=== PATIENT | male | born 1945 | race Caucasian/White ===

== ENCOUNTER 2019-12-04 10:58 | Observation (INO) ==
[2019-12-04] MEDS ORDERED: SODIUM CHLORIDE 0.9% 1,000 ML IV STA (11:22)
[2019-12-04] MEDS ORDERED: ONDANSETRON 4 MG/2 ML VIAL IV STA (11:22)
[2019-12-04] MEDS ORDERED: HYDROmorphone 2 MG/1 ML VIAL ONE (12:07)
[2019-12-04 12:11] LABS: Basophils % 0.3 % (0.0-0.8); Eosinophils % 0.1 % (0.00-10.9); Hematocrit 39.8 VOL% (42.0-52.0); Immature Granulocytes % 0.6 %; Immature Granulocytes Absolute 0.09 #; Lymphocytes # 2.5 10*3/uL (1.4-4.0); Lymphocytes % 15.9 % (21.2-54.2); Mean Corpuscular HGB Conc 32.7 GM/DL (32-36); Mean Corpuscular Volume 92.6 FL (87-102); Mean Platelet Volume 10.1 FL (9.6-12.0); Monocytes % 7.9 % (1.7-12.7); Neutrophils % 75.2 % (38.7-73.9); Platelet Count 330 T/CUMM (130-400); Red Cell Distribution Width 13.9 % (9.3-17.3); White Blood Count 15.5 T/CUMM (4-12)
[2019-12-04] MEDS ORDERED: HYDROmorphone 2 MG/1 ML VIAL IV STA (12:16)
[2019-12-04] MEDS ORDERED: ceFAZolin 1,000 MG in SYRINGE 1 EACH IV ONE (12:20)
[2019-12-04 12:23] LABS: PT Patient Result 10.7 SECS (9.8-11.9); Partial Thromboplastin Time 25.3 SECS (23.9-33.8)
[2019-12-04 12:25] LABS: Albumin 3.4 G/DL (3.4-5.0); Bilirubin,Total 0.5 MG/DL (0.2-1.0); Calcium 9.1 MG/DL (8.5-10.1); Osmolality,Calculated 286.3 MOS/KG (273-304); Total Protein 8.4 G/DL (6.4-8.3)
[2019-12-04] MEDS ORDERED: SODIUM CHLORIDE 0.9% 1,000 ML IV PRN (13:51)
[2019-12-04] MEDS ORDERED: LACTATED RINGERS 1,000 ML IV SCH (14:00)
[2019-12-04] MEDS ORDERED: ceFAZolin 1,000 MG VIAL ONE (14:15)
[2019-12-04] MEDS ORDERED: TISSUE ADHESIVE 1 EACH APPLICATOR TOP ONE (15:27)
[2019-12-04] MEDS ORDERED: ACETAMINOPHEN 325 MG TABLET PO PRN (15:45)
[2019-12-04] MEDS ORDERED: ONDANSETRON 4 MG/2 ML VIAL IV PRN ×2 (15:45→15:47)
[2019-12-04] MEDS ORDERED: HYDROmorphone 2 MG/1 ML VIAL IV PRN (15:47)
[2019-12-04] MEDS ORDERED: SEVOFLURANE 1 UNIT/15 MINUTE INH ONE (15:50)
[2019-12-04] MEDS ORDERED: LIDOCAINE 2% 5 ML VIAL ONE (15:50)
[2019-12-04] MEDS ORDERED: fentaNYL 100 MCG/2 ML VIAL ONE (15:50)
[2019-12-04] MEDS ORDERED: ONDANSETRON 4 MG/2 ML VIAL ONE (15:50)
[2019-12-04] MEDS ORDERED: propofoL 200 MG/20 ML VIAL IV ONE (15:50)
[2019-12-04] MEDS ORDERED: GLYCOPYRROLATE 0.4 MG/2 ML VIAL ONE (15:51)
[2019-12-04] MEDS ORDERED: PHENYLEPHRINE 1 MG/10 ML SYRINGE IV ONE (15:51)
[2019-12-04] MEDS ORDERED: ROCURONIUM 100 MG/10 ML VIAL IV ONE (15:51)
[2019-12-04] MEDS ORDERED: NEOSTIGMINE 10 MG/10 ML VIAL ONE (15:51)
[2019-12-04] MEDS ORDERED: ETOMIDATE 40 MG/20 ML VIAL IV ONE (15:51)
[2019-12-04] MEDS ORDERED: HYDROCORTISONE 100 MG VIAL ONE (15:51)
[2019-12-04 20:36] LABS: Apearance,Urine CLEAR (Clear); Bacteria,Urine Occasional /HPF (Few); Bilirubin,Urine Negative (Negative); Blood, Urine Moderate mg/dL (Negative); Glucose,Urine (UA) Negative (Negative); Ketones,Urine Negative (Negative); Mucus,Urine Occasional /LPF (Occasional); Nitrite,Urine Negative (Negative); Protein,Urine Negative; RBC,Urine 3 /HPF (0-4); Squamous Epithelial Cell,Urine Occasional /HPF (0-10); Urine Color Yellow (Yellow); Urine Specific Gravity > 1.060 (1.001-1.035); Urine Urobilinogen < 2.0 EU/DL (0.2-1.0); WBC,Urine 1 /HPF (0-6)
[2019-12-04] MEDS: HYDROmorphone 2 MG/1 ML VIAL IV PRN (20:41)
[2019-12-05] MEDS: HYDROmorphone 2 MG/1 ML VIAL IV PRN (02:47)
[2019-12-05 06:12] LABS: Basophils % 0.3 % (0.0-0.8); Eosinophils # 0.1 10*3/uL (0.0-0.87); Eosinophils % 0.4 % (0.00-10.9); Hematocrit 34.2 VOL% (42.0-52.0); Hemoglobin 11.1 GM/DL (14.0-18.0); Immature Granulocytes % 0.3 %; Immature Granulocytes Absolute 0.04 #; Lymphocytes # 3.1 10*3/uL (1.4-4.0); Lymphocytes % 25.3 % (21.2-54.2); Mean Corpuscular HGB Conc 32.5 GM/DL (32-36); Mean Corpuscular Volume 94.2 FL (87-102); Mean Platelet Volume 10.2 FL (9.6-12.0); Monocytes % 11.2 % (1.7-12.7); Neutrophils % 62.5 % (38.7-73.9); Platelet Count 263 T/CUMM (130-400); Red Blood Count 3.63 MC/CUMM (3.8-5.5); Red Cell Distribution Width 13.9 % (9.3-17.3); White Blood Count 12.2 T/CUMM (4-12)
[2019-12-05 06:48] LABS: Osmolality,Calculated 278.7 MOS/KG (273-304)
[2019-12-05] MEDS: LACTATED RINGERS 1,000 ML IV SCH (08:25)
[2019-12-05] MEDS ORDERED: BISACODYL 5 MG TABLET PO ONE (09:28)
[2019-12-05] MEDS ORDERED: SIMVASTATIN 40 MG TABLET PO SCH (21:00)
[2019-12-05] MEDS ORDERED: PANTOPRAZOLE 40 MG TABLET PO ONE (23:24)
[2019-12-06] MEDS: LACTATED RINGERS 1,000 ML IV SCH ×2 (05:08→12:55)
[2019-12-06 07:09] LABS: Basophils % 0.2 % (0.0-0.8); Eosinophils # 0.1 10*3/uL (0.0-0.87); Hematocrit 33.5 VOL% (42.0-52.0); Immature Granulocytes % 0.5 %; Immature Granulocytes Absolute 0.05 #; Lymphocytes # 2.5 10*3/uL (1.4-4.0); Lymphocytes % 25.3 % (21.2-54.2); Mean Corpuscular HGB Conc 32.8 GM/DL (32-36); Mean Corpuscular Volume 93.6 FL (87-102); Mean Platelet Volume 9.4 FL (9.6-12.0); Monocytes % 11.4 % (1.7-12.7); Neutrophils % 61.6 % (38.7-73.9); Platelet Count 228 T/CUMM (130-400); Red Blood Count 3.58 MC/CUMM (3.8-5.5); Red Cell Distribution Width 13.5 % (9.3-17.3); White Blood Count 9.9 T/CUMM (4-12)
[2019-12-06 07:19] LABS: Calcium 8.5 MG/DL (8.5-10.1); Osmolality,Calculated 272.1 MOS/KG (273-304)
[2019-12-06] MEDS ORDERED: DIAZEPAM 5 MG TABLET PO ONE (08:23)
[2019-12-06 12:06] VITALS: BP 118/56
== END 2019-12-06 15:03 | disposition home or self-care (01) ==
LOC: EDUNIT# → EDBD → N.ED 10:58 → N.SDSINP 13:18 → INTOOBSV 13:18 → N.SDSINP 13:22 → N.SDS 13:22 → N.SDSINP 13:24 → EDSDCBED 16:45 → N.3E 16:45 → N.SDSINP 16:45 → N.SDS 12-06 15:03 → UNDODEPSDC 12-09 10:26
PROVIDERS: ADMIT Student in an Organized Health Care Education/Training Program; ATTEND Student in an Organized Health Care Education/Training Program

== ENCOUNTER 2019-12-07 07:59 | Inpatient (IN) ==
[2019-12-07] MEDS ORDERED: SODIUM CHLORIDE 0.9% 1,000 ML IV STA (08:40)
[2019-12-07] MEDS ORDERED: ONDANSETRON 4 MG/2 ML VIAL IV STA (08:40)
[2019-12-07 09:05] LABS: Basophils % 0.1 % (0.0-0.8); Eosinophils % 0.3 % (0.00-10.9); Hematocrit 33.8 VOL% (42.0-52.0); Hemoglobin 11.1 GM/DL (14.0-18.0); Immature Granulocytes % 0.4 %; Immature Granulocytes Absolute 0.05 #; Lymphocytes # 1.4 10*3/uL (1.4-4.0); Lymphocytes % 12.3 % (21.2-54.2); Mean Corpuscular HGB Conc 32.8 GM/DL (32-36); Mean Corpuscular Volume 93.6 FL (87-102); Mean Platelet Volume 9.6 FL (9.6-12.0); Monocytes % 10.2 % (1.7-12.7); Neutrophils % 76.7 % (38.7-73.9); Platelet Count 259 T/CUMM (130-400); Red Blood Count 3.61 MC/CUMM (3.8-5.5); Red Cell Distribution Width 13.2 % (9.3-17.3); White Blood Count 11.6 T/CUMM (4-12)
[2019-12-07 09:33] LABS: Albumin 2.5 G/DL (3.4-5.0); Bilirubin,Direct 0.14 MG/DL (0.0-0.20); Bilirubin,Indirect 0.5 MG/DL (0.0-1.0); Bilirubin,Total 0.6 MG/DL (0.2-1.0); Calcium 8.1 MG/DL (8.5-10.1); Osmolality,Calculated 275.8 MOS/KG (273-304); Total Protein 7.2 G/DL (6.4-8.3)
[2019-12-07] MEDS ORDERED: BISACODYL 10 MG SUPP RECTAL PRN (13:27)
[2019-12-07] MEDS: ONDANSETRON 4 MG/2 ML VIAL IV PRN (13:43)
[2019-12-07] MEDS: DEXTROSE 5% NACL 0.45% 1,000 ML IV SCH ×2 (13:46→23:39)
[2019-12-07] MEDS: HYDROmorphone 2 MG/1 ML VIAL IV PRN (20:26)
[2019-12-07] MEDS: CLOPIDOGREL 75 MG TABLET PO SCH (20:26)
[2019-12-07] MEDS: ASPIRIN EC 81 MG TABLET PO SCH (20:26)
[2019-12-08] MEDS: HYDROmorphone 2 MG/1 ML VIAL IV PRN ×4 (00:21→18:50)
[2019-12-08] MEDS: ENOXAPARIN 40 MG/0.4 ML SYRINGE SUBCUT SCH (04:15)
[2019-12-08] MEDS: DEXTROSE 5% NACL 0.45% 1,000 ML IV SCH ×3 (04:17→18:44)
[2019-12-08 05:44] LABS: Osmolality,Calculated 275.8 MOS/KG (273-304)
[2019-12-08 08:23] LABS: Apearance,Urine CLEAR (Clear); Bacteria,Urine Occasional /HPF (Few); Bilirubin,Urine Negative (Negative); Blood, Urine Negative (Negative); Glucose,Urine (UA) Negative (Negative); Ketones,Urine Negative (Negative); Mucus,Urine Few /LPF (Occasional); Nitrite,Urine Negative (Negative); Protein,Urine 30 MG/DL; RBC,Urine 1 /HPF (0-4); Squamous Epithelial Cell,Urine Occasional /HPF (0-10); Urine Color Yellow (Yellow); Urine Specific Gravity 1.025 (1.001-1.035); Urine Urobilinogen < 2.0 EU/DL (0.2-1.0); WBC,Urine 1 /HPF (0-6)
[2019-12-08] MEDS: PANTOPRAZOLE 40 MG VIAL IV SCH (09:14)
[2019-12-08] MEDS: POTASSIUM CHLORIDE RIDER 10 MEQ in PREMIX 1 EACH IV PRN ×8 (11:05→22:20)
[2019-12-08] MEDS: ASPIRIN EC 81 MG TABLET PO SCH (21:25)
[2019-12-08] MEDS: CLOPIDOGREL 75 MG TABLET PO SCH (21:25)
[2019-12-09] MEDS: HYDROmorphone 2 MG/1 ML VIAL IV PRN ×4 (00:06→20:48)
[2019-12-09] MEDS: ENOXAPARIN 40 MG/0.4 ML SYRINGE SUBCUT SCH (03:27)
[2019-12-09] MEDS: POTASSIUM CHLORIDE RIDER 10 MEQ in PREMIX 1 EACH IV PRN ×2 (03:45→04:56)
[2019-12-09] MEDS: DEXTROSE 5% NACL 0.45% 1,000 ML IV SCH ×3 (05:29→19:19)
[2019-12-09 07:30] LABS: Basophils % 0.2 % (0.0-0.8); Eosinophils # 0.2 10*3/uL (0.0-0.87); Eosinophils % 1.5 % (0.00-10.9); Hematocrit 30.8 VOL% (42.0-52.0); Hemoglobin 10.2 GM/DL (14.0-18.0); Immature Granulocytes % 0.6 %; Immature Granulocytes Absolute 0.08 #; Lymphocytes # 2.3 10*3/uL (1.4-4.0); Lymphocytes % 18.4 % (21.2-54.2); Mean Corpuscular HGB Conc 33.1 GM/DL (32-36); Mean Corpuscular Volume 93.1 FL (87-102); Mean Platelet Volume 9.2 FL (9.6-12.0); Monocytes % 9.8 % (1.7-12.7); Neutrophils % 69.5 % (38.7-73.9); Platelet Count 289 T/CUMM (130-400); Red Blood Count 3.31 MC/CUMM (3.8-5.5); Red Cell Distribution Width 13.3 % (9.3-17.3); White Blood Count 12.4 T/CUMM (4-12)
[2019-12-09 07:48] LABS: Calcium 7.9 MG/DL (8.5-10.1); Osmolality,Calculated 268.2 MOS/KG (273-304)
[2019-12-09] MEDS: PANTOPRAZOLE 40 MG VIAL IV SCH (08:25)
[2019-12-09] MEDS ORDERED: ACETAMINOPHEN 325 MG/10.15 ML UDCUP PO PRN (11:14)
[2019-12-09] MEDS: PIPERACILLIN/TAZOBACTAM 3,375 MG in SODIUM CHLORIDE 0.9% 100 ML IV SCH ×2 (12:26→20:39)
[2019-12-09] MEDS: ONDANSETRON 4 MG/2 ML VIAL IV PRN (20:42)
[2019-12-10] MEDS: HYDROmorphone 2 MG/1 ML VIAL IV PRN ×4 (03:36→21:58)
[2019-12-10] MEDS: ASPIRIN EC 81 MG TABLET PO SCH ×2 (03:37→20:39)
[2019-12-10] MEDS: ENOXAPARIN 40 MG/0.4 ML SYRINGE SUBCUT SCH (03:59)
[2019-12-10] MEDS: PIPERACILLIN/TAZOBACTAM 3,375 MG in SODIUM CHLORIDE 0.9% 100 ML IV SCH ×3 (04:00→20:39)
[2019-12-10 05:07] LABS: Basophils % 0.2 % (0.0-0.8); Eosinophils # 0.1 10*3/uL (0.0-0.87); Hematocrit 30.9 VOL% (42.0-52.0); Hemoglobin 10.3 GM/DL (14.0-18.0); Immature Granulocytes % 0.8 %; Immature Granulocytes Absolute 0.12 #; Lymphocytes # 2.5 10*3/uL (1.4-4.0); Lymphocytes % 17.8 % (21.2-54.2); Mean Corpuscular HGB Conc 33.3 GM/DL (32-36); Mean Corpuscular Volume 92.5 FL (87-102); Mean Platelet Volume 9.7 FL (9.6-12.0); Monocytes % 9.9 % (1.7-12.7); Neutrophils % 70.3 % (38.7-73.9); Platelet Count 340 T/CUMM (130-400); Red Blood Count 3.34 MC/CUMM (3.8-5.5); Red Cell Distribution Width 13.2 % (9.3-17.3); White Blood Count 14.3 T/CUMM (4-12)
[2019-12-10 05:33] LABS: Calcium 8.2 MG/DL (8.5-10.1); Osmolality,Calculated 268.2 MOS/KG (273-304)
[2019-12-10] MEDS: PANTOPRAZOLE 40 MG VIAL IV SCH (08:57)
[2019-12-10] MEDS: DEXTROSE 5% NACL 0.45% 1,000 ML IV SCH (12:07)
[2019-12-10] MEDS: POTASSIUM CHLORIDE RIDER 10 MEQ in PREMIX 1 EACH IV PRN ×4 (14:05→18:43)
[2019-12-11] MEDS: PIPERACILLIN/TAZOBACTAM 3,375 MG in SODIUM CHLORIDE 0.9% 100 ML IV SCH ×3 (04:12→22:07)
[2019-12-11] MEDS: ENOXAPARIN 40 MG/0.4 ML SYRINGE SUBCUT SCH (04:12)
[2019-12-11 05:43] LABS: Basophils % 0.2 % (0.0-0.8); Eosinophils # 0.3 10*3/uL (0.0-0.87); Eosinophils % 2.6 % (0.00-10.9); Hematocrit 28.6 VOL% (42.0-52.0); Hemoglobin 9.7 GM/DL (14.0-18.0); Immature Granulocytes % 0.6 %; Immature Granulocytes Absolute 0.06 #; Lymphocytes # 2.1 10*3/uL (1.4-4.0); Lymphocytes % 19.5 % (21.2-54.2); Mean Corpuscular HGB Conc 33.9 GM/DL (32-36); Mean Corpuscular Volume 91.1 FL (87-102); Mean Platelet Volume 9.5 FL (9.6-12.0); Monocytes % 10.5 % (1.7-12.7); Neutrophils % 66.6 % (38.7-73.9); Platelet Count 336 T/CUMM (130-400); Red Blood Count 3.14 MC/CUMM (3.8-5.5); Red Cell Distribution Width 13.3 % (9.3-17.3); White Blood Count 10.7 T/CUMM (4-12)
[2019-12-11 06:03] LABS: Osmolality,Calculated 272.8 MOS/KG (273-304)
[2019-12-11] MEDS: PANTOPRAZOLE 40 MG VIAL IV SCH (09:51)
[2019-12-11] MEDS: DEXTROSE 5% NACL 0.45% 1,000 ML IV SCH (09:51)
[2019-12-11] MEDS: POTASSIUM CHLORIDE RIDER 10 MEQ in PREMIX 1 EACH IV PRN ×3 (15:30→18:40)
[2019-12-11] MEDS: ASPIRIN EC 81 MG TABLET PO SCH (22:07)
[2019-12-11] MEDS: HYDROmorphone 2 MG/1 ML VIAL IV PRN (22:15)
[2019-12-12] MEDS: ENOXAPARIN 40 MG/0.4 ML SYRINGE SUBCUT SCH (05:04)
[2019-12-12] MEDS: PIPERACILLIN/TAZOBACTAM 3,375 MG in SODIUM CHLORIDE 0.9% 100 ML IV SCH ×3 (05:05→20:49)
[2019-12-12 05:38] LABS: Basophils % 0.4 % (0.0-0.8); Eosinophils # 0.1 10*3/uL (0.0-0.87); Eosinophils % 1.4 % (0.00-10.9); Hematocrit 31.2 VOL% (42.0-52.0); Hemoglobin 10.5 GM/DL (14.0-18.0); Immature Granulocytes % 0.4 %; Immature Granulocytes Absolute 0.03 #; Lymphocytes % 35.6 % (21.2-54.2); Mean Corpuscular HGB Conc 33.7 GM/DL (32-36); Mean Corpuscular Volume 90.2 FL (87-102); Mean Platelet Volume 8.9 FL (9.6-12.0); Monocytes % 13.2 % (1.7-12.7); Platelet Count 369 T/CUMM (130-400); Red Blood Count 3.46 MC/CUMM (3.8-5.5); Red Cell Distribution Width 13.4 % (9.3-17.3); White Blood Count 8.3 T/CUMM (4-12)
[2019-12-12 06:06] LABS: Calcium 8.4 MG/DL (8.5-10.1); Osmolality,Calculated 268.1 MOS/KG (273-304)
[2019-12-12 06:08] LABS: Hypochromasia 1+; Microcytosis Slight; Platelet Estimate Normal
[2019-12-12] MEDS: PANTOPRAZOLE 40 MG VIAL IV SCH (09:03)
[2019-12-12] MEDS: DEXTROSE 5% NACL 0.45% 1,000 ML IV SCH ×2 (19:40→21:09)
[2019-12-12] MEDS: ASPIRIN EC 81 MG TABLET PO SCH (21:06)
[2019-12-12] MEDS: HYDROmorphone 2 MG/1 ML VIAL IV PRN (21:07)
[2019-12-13] MEDS: DEXTROSE 5% NACL 0.45% 1,000 ML IV SCH ×2 (02:54→13:45)
[2019-12-13] MEDS: ENOXAPARIN 40 MG/0.4 ML SYRINGE SUBCUT SCH (02:54)
[2019-12-13] MEDS: PIPERACILLIN/TAZOBACTAM 3,375 MG in SODIUM CHLORIDE 0.9% 100 ML IV SCH ×2 (04:43→13:44)
[2019-12-13 05:24] LABS: Basophils % 0.4 % (0.0-0.8); Eosinophils # 0.1 10*3/uL (0.0-0.87); Eosinophils % 1.6 % (0.00-10.9); Hematocrit 27.9 VOL% (42.0-52.0); Hemoglobin 9.2 GM/DL (14.0-18.0); Immature Granulocytes % 0.4 %; Immature Granulocytes Absolute 0.03 #; Lymphocytes # 2.4 10*3/uL (1.4-4.0); Lymphocytes % 35.2 % (21.2-54.2); Mean Corpuscular Volume 92.4 FL (87-102); Mean Platelet Volume 9.1 FL (9.6-12.0); Monocytes % 14.4 % (1.7-12.7); Platelet Count 380 T/CUMM (130-400); Red Blood Count 3.02 MC/CUMM (3.8-5.5); Red Cell Distribution Width 13.4 % (9.3-17.3); White Blood Count 6.7 T/CUMM (4-12)
[2019-12-13 05:47] LABS: Calcium 7.6 MG/DL (8.5-10.1); Osmolality,Calculated 275.5 MOS/KG (273-304)
[2019-12-13 06:06] LABS: Eosinophils 2 % (0-10); Lymphocytes 31 % (20-55); Platelet Estimate Normal; Segmented Neutrophils 56 % (50-85); Total Cells Counted 100
[2019-12-13 06:08] LABS: Microcytosis Slight; Polychromasia Slight; Target Cells Few
[2019-12-13] MEDS ORDERED: LACTATED RINGERS 1,000 ML IV SCH (08:00)
[2019-12-13] MEDS: SODIUM CHLORIDE 0.9% 1,000 ML IV SCH ×2 (08:45→09:18)
[2019-12-13] MEDS ORDERED: PHENYLEPHRINE 1 MG/10 ML SYRINGE IV ONE (09:00)
[2019-12-13] MEDS ORDERED: LIDOCAINE 2% 5 ML VIAL ONE (09:00)
[2019-12-13] MEDS ORDERED: propofoL 200 MG/20 ML VIAL IV ONE (09:00)
[2019-12-13] MEDS: PANTOPRAZOLE 40 MG VIAL IV SCH (09:51)
[2019-12-13 12:53] VITALS: BP 130/58
[2019-12-13] MEDS ORDERED: POTASSIUM CHLORIDE 20 MEQ TABLET PO ONE (13:40)
[2019-12-13] MEDS: POTASSIUM CHLORIDE RIDER 10 MEQ in PREMIX 1 EACH IV SCH ×2 (13:43→13:44)
== END 2019-12-13 15:17 | disposition home or self-care (01) | DRG 351 ==
LOC: EDUNIT# → EDBD → N.ED 07:59 → N.EDINP 07:59 → N.3E 12:26
PROVIDERS: ADMIT Student in an Organized Health Care Education/Training Program; ATTEND Student in an Organized Health Care Education/Training Program

== ENCOUNTER 2019-12-27 09:09 | Inpatient (IN) ==
[2019-12-27 09:55] LABS: Basophils % 0.1 % (0.0-0.8); Eosinophils # 0.1 10*3/uL (0.0-0.87); Eosinophils % 0.6 % (0.00-10.9); Hematocrit 32.5 VOL% (42.0-52.0); Hemoglobin 10.6 GM/DL (14.0-18.0); Immature Granulocytes % 0.6 %; Immature Granulocytes Absolute 0.06 #; Lymphocytes # 1.9 10*3/uL (1.4-4.0); Lymphocytes % 19.6 % (21.2-54.2); Mean Corpuscular HGB Conc 32.6 GM/DL (32-36); Mean Corpuscular Volume 91.5 FL (87-102); Mean Platelet Volume 9.7 FL (9.6-12.0); Monocytes % 6.9 % (1.7-12.7); Neutrophils % 72.2 % (38.7-73.9); Platelet Count 467 T/CUMM (130-400); Red Blood Count 3.55 MC/CUMM (3.8-5.5); Red Cell Distribution Width 13.6 % (9.3-17.3); White Blood Count 9.6 T/CUMM (4-12)
[2019-12-27 10:15] LABS: Partial Thromboplastin Time 26.4 SECS (23.9-33.8)
[2019-12-27 10:17] LABS: Alanine Aminotransferase 47 U/L (16-61); Albumin 2.3 G/DL (3.4-5.0); Alkaline Phosphatase 99 U/L (45-117); Aspartate Amino Transferase 57 U/L (0-37); Blood Urea Nitrogen 16 MG/DL (7-18); Estimated Glom Filtration Rate 73 ML/MIN; Ferritin 974.3 ng/ml (26-388); Glucose 115 MG/DL (74-106); Osmolality,Calculated 274.8 MOS/KG (273-304); Total Protein 8.5 G/DL (6.4-8.3); Troponin I < 0.015 NG/ML (0.00-0.045)
[2019-12-27] MEDS ORDERED: methylPREDNISolone SOD SUC 125 MG/2 ML VIAL IV STA (10:32)
[2019-12-27] MEDS ORDERED: AZITHROMYCIN INJ 500 MG in SODIUM CHLORIDE 0.9% 250 ML IV STA (10:32)
[2019-12-27] MEDS ORDERED: GLUCAGON 1 MG VIAL IM PRN (11:47)
[2019-12-27] MEDS ORDERED: DEXTROSE 50% 25 GM/50 ML VIAL IV PRN (11:47)
[2019-12-27] MEDS ORDERED: ONDANSETRON 4 MG/2 ML VIAL IV PRN (11:54)
[2019-12-27] MEDS ORDERED: ACETAMINOPHEN 325 MG TABLET PO PRN (11:54)
[2019-12-27] MEDS ORDERED: DEXTROSE 10% 250 ML BAG IV PRN (12:00)
[2019-12-27] MEDS: ENOXAPARIN 40 MG/0.4 ML SYRINGE SUBCUT SCH (15:50)
[2019-12-27] MEDS: cefTRIAXone 1,000 MG in SYRINGE 1 EACH IV SCH (15:50)
[2019-12-28 05:41] LABS: Basophils % 0.1 % (0.0-0.8); Hematocrit 31.2 VOL% (42.0-52.0); Hemoglobin 10.5 GM/DL (14.0-18.0); Immature Granulocytes % 0.3 %; Immature Granulocytes Absolute 0.03 #; Lymphocytes # 1.4 10*3/uL (1.4-4.0); Lymphocytes % 15.5 % (21.2-54.2); Mean Corpuscular HGB Conc 33.7 GM/DL (32-36); Mean Corpuscular Volume 87.9 FL (87-102); Mean Platelet Volume 9.8 FL (9.6-12.0); Monocytes % 3.8 % (1.7-12.7); Neutrophils % 80.3 % (38.7-73.9); Platelet Count 460 T/CUMM (130-400); Red Blood Count 3.55 MC/CUMM (3.8-5.5); Red Cell Distribution Width 13.3 % (9.3-17.3); White Blood Count 8.9 T/CUMM (4-12)
[2019-12-28 06:05] LABS: Calcium 8.6 MG/DL (8.5-10.1); Osmolality,Calculated 278.8 MOS/KG (273-304)
[2019-12-28 08:13] LABS: Apearance,Urine CLEAR (Clear); Bilirubin,Urine Negative (Negative); Blood, Urine Negative (Negative); Glucose,Urine (UA) 50 mg/dL (Negative); Hyaline Casts,Urine 2 /LPF (0-3); Ketones,Urine Negative (Negative); Mucus,Urine Few /LPF (Occasional); Nitrite,Urine Negative (Negative); Protein,Urine 30 MG/DL; Squamous Epithelial Cell,Urine Occasional /HPF (0-10); Urine Color Yellow (Yellow); Urine Specific Gravity 1.028 (1.001-1.035); Urine Urobilinogen < 2.0 EU/DL (0.2-1.0); WBC,Urine 2 /HPF (0-6)
[2019-12-28] MEDS: PANTOPRAZOLE 40 MG TABLET PO SCH (08:32)
[2019-12-28 09:16] LABS: Anisocytosis 1+; Burr Cells Few; Macrocytosis Slight; Microcytosis Slight; Platelet Estimate Increased; Polychromasia Slight
[2019-12-28] MEDS: AZITHROMYCIN INJ 250 MG in SODIUM CHLORIDE 0.9% 150 ML IV SCH (14:45)
[2019-12-28] MEDS: cefTRIAXone 1,000 MG in SYRINGE 1 EACH IV SCH (14:45)
[2019-12-28] MEDS: ENOXAPARIN 40 MG/0.4 ML SYRINGE SUBCUT SCH (14:45)
[2019-12-29 05:31] LABS: Basophils % 0.1 % (0.0-0.8); Eosinophils # 0.1 10*3/uL (0.0-0.87); Eosinophils % 0.5 % (0.00-10.9); Hematocrit 31.1 VOL% (42.0-52.0); Immature Granulocytes % 0.5 %; Immature Granulocytes Absolute 0.06 #; Lymphocytes # 2.2 10*3/uL (1.4-4.0); Lymphocytes % 19.1 % (21.2-54.2); Mean Corpuscular HGB Conc 32.2 GM/DL (32-36); Mean Corpuscular Volume 91.5 FL (87-102); Mean Platelet Volume 9.7 FL (9.6-12.0); Monocytes % 6.8 % (1.7-12.7); Platelet Count 511 T/CUMM (130-400); Red Cell Distribution Width 13.3 % (9.3-17.3); White Blood Count 11.4 T/CUMM (4-12)
[2019-12-29 06:03] LABS: Calcium 8.7 MG/DL (8.5-10.1); Osmolality,Calculated 282.4 MOS/KG (273-304)
[2019-12-29] MEDS: PANTOPRAZOLE 40 MG TABLET PO SCH (09:47)
[2019-12-29 10:53] LABS: Platelet Estimate Increased
[2019-12-29 10:54] LABS: Hypochromasia 2+; Microcytosis 1+
[2019-12-29 10:55] LABS: Lymphocytes 20 % (20-55); Polychromasia Slight; Segmented Neutrophils 77 % (50-85); Total Cells Counted 100
[2019-12-29] MEDS: AZITHROMYCIN INJ 250 MG in SODIUM CHLORIDE 0.9% 150 ML IV SCH (15:03)
[2019-12-29] MEDS: cefTRIAXone 1,000 MG in SYRINGE 1 EACH IV SCH (16:15)
[2019-12-29] MEDS: ENOXAPARIN 40 MG/0.4 ML SYRINGE SUBCUT SCH (16:15)
[2019-12-30 03:39] LABS: Basophils % 0.1 % (0.0-0.8); Eosinophils # 0.2 10*3/uL (0.0-0.87); Eosinophils % 1.8 % (0.00-10.9); Hematocrit 31.3 VOL% (42.0-52.0); Immature Granulocytes % 0.7 %; Immature Granulocytes Absolute 0.07 #; Lymphocytes # 2.5 10*3/uL (1.4-4.0); Lymphocytes % 26.4 % (21.2-54.2); Mean Corpuscular HGB Conc 31.9 GM/DL (32-36); Mean Corpuscular Volume 91.3 FL (87-102); Mean Platelet Volume 9.7 FL (9.6-12.0); Monocytes % 9.4 % (1.7-12.7); Neutrophils % 61.6 % (38.7-73.9); Platelet Count 476 T/CUMM (130-400); Red Blood Count 3.43 MC/CUMM (3.8-5.5); Red Cell Distribution Width 13.2 % (9.3-17.3); White Blood Count 9.6 T/CUMM (4-12)
[2019-12-30 04:06] LABS: Calcium 8.6 MG/DL (8.5-10.1); Osmolality,Calculated 274.8 MOS/KG (273-304)
[2019-12-30] MEDS: PANTOPRAZOLE 40 MG TABLET PO SCH (08:33)
[2019-12-30] MEDS: cefTRIAXone 1,000 MG in SYRINGE 1 EACH IV SCH (08:34)
[2019-12-30] MEDS: AZITHROMYCIN 250 MG TABLET PO SCH (08:34)
[2019-12-30] MEDS: ENOXAPARIN 40 MG/0.4 ML SYRINGE SUBCUT SCH (08:34)
[2019-12-30] MEDS ORDERED: CLOPIDOGREL 75 MG TABLET PO SCH (21:00)
[2019-12-30] MEDS ORDERED: CYANOCOBALAMIN 500 MCG TABLET PO SCH (21:00)
[2019-12-30] MEDS ORDERED: ASPIRIN EC 81 MG TABLET PO SCH (21:00)
[2019-12-30] MEDS ORDERED: NON-FORMULARY MEDICATION (Esomeprazole Magnesium [Nexium] 20 MG) PO SCH (21:00)
[2019-12-30] MEDS ORDERED: SIMVASTATIN 40 MG TABLET PO SCH (21:00)
[2019-12-31 04:00] LABS: Basophils % 0.2 % (0.0-0.8); Eosinophils # 0.2 10*3/uL (0.0-0.87); Eosinophils % 1.7 % (0.00-10.9); Immature Granulocytes % 0.8 %; Immature Granulocytes Absolute 0.08 #; Lymphocytes # 2.4 10*3/uL (1.4-4.0); Lymphocytes % 22.1 % (21.2-54.2); Mean Corpuscular HGB Conc 32.3 GM/DL (32-36); Mean Platelet Volume 9.5 FL (9.6-12.0); Neutrophils % 65.2 % (38.7-73.9); Platelet Count 477 T/CUMM (130-400); Red Blood Count 3.37 MC/CUMM (3.8-5.5); Red Cell Distribution Width 13.2 % (9.3-17.3); White Blood Count 10.6 T/CUMM (4-12)
[2019-12-31 04:49] LABS: Albumin 1.9 G/DL (3.4-5.0); Bilirubin,Total 0.4 MG/DL (0.2-1.0); Calcium 8.5 MG/DL (8.5-10.1); Osmolality,Calculated 270.1 MOS/KG (273-304); Total Protein 6.4 G/DL (6.4-8.3)
[2019-12-31] MEDS: ENOXAPARIN 40 MG/0.4 ML SYRINGE SUBCUT SCH (08:10)
[2019-12-31] MEDS: PANTOPRAZOLE 40 MG TABLET PO SCH (08:10)
[2019-12-31] MEDS: AZITHROMYCIN 250 MG TABLET PO SCH (08:10)
[2019-12-31] MEDS: cefTRIAXone 1,000 MG in SYRINGE 1 EACH IV SCH (08:10)
[2019-12-31 09:37] VITALS: BP 122/84
== END 2019-12-31 10:36 | disposition home health service (06) | DRG 177 ==
LOC: EDUNIT# → EDBD → N.ED 09:09 → SUATTDRO 10:58 → N.EDINP 10:58 → N.2E 11:40 → N.2W 12-29 15:19
PROVIDERS: ADMIT Internal Medicine; ATTEND Internal Medicine

== ENCOUNTER 2020-04-18 10:52 | Inpatient (IN) ==
[2020-04-18 11:22] LABS: ABG Base Excess -6.5 MMOL/L (-2.5-2.5); ABG Oxygen Saturation 89.2 % (95-100); ABG PCO2 22.9 MM HG (35-48); ABG PH 7.454 (7.35-7.45); ABG TCO2 14.5 MMOL/L (23-27)
[2020-04-18] MEDS ORDERED: LACTATED RINGERS 500 ML IV ONE (11:45)
[2020-04-18 12:14] LABS: Alanine Aminotransferase 37 U/L (16-61); Alkaline Phosphatase 77 U/L (45-117); Aspartate Amino Transferase 61 U/L (0-37); Bilirubin,Total < 0.39 MG/DL (0.2-1.0); Blood Urea Nitrogen 27 MG/DL (7-18); Calcium 8.5 MG/DL (8.5-10.1); Estimated Glom Filtration Rate 43 ML/MIN; Glucose 137 MG/DL (74-106); Osmolality,Calculated 283.5 MOS/KG (273-304); Total Protein 7.4 G/DL (6.4-8.3)
[2020-04-18 12:15] LABS: Ferritin 749.3 ng/ml (26-388)
[2020-04-18 12:17] LABS: Basophils % 0.3 % (0.0-0.8); Eosinophils % 0.3 % (0.00-10.9); Hematocrit 30.5 VOL% (42.0-52.0); Immature Granulocytes Absolute 0.12 #; Lymphocytes # 0.6 10*3/uL (1.4-4.0); Lymphocytes % 4.8 % (21.2-54.2); Mean Corpuscular HGB Conc 32.8 GM/DL (32-36); Mean Corpuscular Volume 96.5 FL (87-102); Mean Platelet Volume 10.1 FL (9.6-12.0); Monocytes % 2.2 % (1.7-12.7); Neutrophils % 91.4 % (38.7-73.9); Platelet Count 604 T/CUMM (130-400); Red Blood Count 3.16 MC/CUMM (3.8-5.5); Red Cell Distribution Width 16.2 % (9.3-17.3); White Blood Count 11.5 T/CUMM (4-12)
[2020-04-18] MEDS ORDERED: LACTATED RINGERS 1,000 ML IV ONE (12:18)
[2020-04-18 12:32] LABS: Band Neutrophils 1 % (0-10); INR 1.1; Lymphocytes 5 % (20-55); Metamyelocytes 1 %; PT Patient Result 11.6 SECS (9.8-11.9); Segmented Neutrophils 91 % (50-85); Total Cells Counted 100
[2020-04-18 12:38] LABS: Platelet Estimate Increased; Polychromasia Slight
[2020-04-18] MEDS ORDERED: AZITHROMYCIN INJ 500 MG in SODIUM CHLORIDE 0.9% 250 ML IV STA (13:26)
[2020-04-18] MEDS ORDERED: cefTRIAXone 1,000 MG in SODIUM CHLORIDE 0.9% 100 ML IV STA (13:26)
[2020-04-18] MEDS ORDERED: NOREPINEPHRINE 8 MG in SODIUM CHLORIDE 0.9% 242 ML IV SCH (13:30)
[2020-04-18] MEDS ORDERED: NOREPINEPHRINE 4 MG/4 ML VIAL IV ONE (13:53)
[2020-04-18] MEDS ORDERED: ONDANSETRON 4 MG/2 ML VIAL IV PRN (14:07)
[2020-04-18] MEDS ORDERED: GLUCAGON 1 MG VIAL IM PRN (14:07)
[2020-04-18] MEDS ORDERED: DEXTROSE 50% 25 GM/50 ML VIAL IV PRN (14:07)
[2020-04-18] MEDS ORDERED: ACETAMINOPHEN 325 MG TABLET PO PRN (14:07)
[2020-04-18] MEDS ORDERED: PANTOPRAZOLE 40 MG TABLET PO SCH (14:30)
[2020-04-18] MEDS ORDERED: NOREPINEPHRINE 8 MG in SODIUM CHLORIDE 0.9% 242 ML IV PRN (14:41)
[2020-04-18] MEDS: SODIUM CHLORIDE 0.9% 1,000 ML IV SCH ×2 (15:04→23:05)
[2020-04-18] MEDS: NOREPINEPHRINE 8 MG in SODIUM CHLORIDE 0.9% 242 ML IV PRN ×2 (15:10→20:55)
[2020-04-18] MEDS ORDERED: ALBUTEROL/IPRATROPIUM 3 ML NEB RESP TX STA (16:04)
[2020-04-18] MEDS ORDERED: ALBUTEROL/IPRATROPIUM 3 ML NEB RESP TX ONE (16:05)
[2020-04-18] MEDS: ENOXAPARIN 40 MG/0.4 ML SYRINGE SUBCUT SCH (17:27)
[2020-04-18 17:58] LABS: Apearance,Urine CLEAR (Clear); Bacteria,Urine Occasional /HPF (Few); Bilirubin,Urine Negative (Negative); Blood, Urine Negative (Negative); Glucose,Urine (UA) Negative (Negative); Hyaline Casts,Urine 3 /LPF (0-3); Ketones,Urine 5 mg/dL (Negative); Mucus,Urine Occasional /LPF (Occasional); Nitrite,Urine Negative (Negative); Protein,Urine 30 MG/DL; RBC,Urine 2 /HPF (0-4); Urine Color Yellow (Yellow); Urine Specific Gravity 1.043 (1.001-1.035); Urine Urobilinogen < 2.0 EU/DL (0.2-1.0); WBC,Urine <1 /HPF (0-6)
[2020-04-18] MEDS: methylPREDNISolone SOD SUC 40 MG/1 ML VIAL IV SCH (18:15)
[2020-04-18] MEDS ORDERED: DEXAMETHASONE 10 MG/1 ML VIAL IV ONE (18:23)
[2020-04-18] MEDS: LORazepam 2 MG/1 ML VIAL IV PRN (18:49)
[2020-04-18 19:20] LABS: Allen Test Positive; Pt O2 Delivery Device BIPAP
[2020-04-18 19:22] LABS: ABG HCO3 20.3 MMOL/L (20-26); ABG Oxygen Saturation 99.6 % (95-100); ABG PCO2 28.2 MM HG (35-48); ABG PH 7.423 (7.35-7.45); ABG TCO2 16.9 MMOL/L (23-27)
[2020-04-18] MEDS: ALBUTEROL/IPRATROPIUM 3 ML NEB RESP TX SCH (19:35)
[2020-04-18] MEDS ORDERED: ALBUMIN 25% 25 GM in PREMIX 1 EACH IV ONE (20:00)
[2020-04-18] MEDS ORDERED: PIPERACILLIN/TAZOBACTAM 3,375 MG in SODIUM CHLORIDE 0.9% 100 ML IV SCH (20:00)
[2020-04-18] MEDS: MEROPENEM 500 MG in SODIUM CHLORIDE 0.9% 100 ML IV SCH (20:21)
[2020-04-18] MEDS: MULTIVITAMIN (CENTRUM) TABLET PO SCH (20:22)
[2020-04-18] MEDS: CYANOCOBALAMIN 500 MCG TABLET PO SCH (20:22)
[2020-04-18] MEDS: PANTOPRAZOLE 40 MG TABLET PO SCH (20:22)
[2020-04-18] MEDS: CLOPIDOGREL 75 MG TABLET PO SCH (20:22)
[2020-04-18] MEDS: ASCORBIC ACID 500 MG TABLET PO SCH (20:22)
[2020-04-18] MEDS: FERROUS SULFATE 325 MG TABLET PO SCH (20:22)
[2020-04-18] MEDS ORDERED: VANCOMYCIN INJ 1,250 MG in SODIUM CHLORIDE 0.9% 250 ML IV ONE (20:30)
[2020-04-18] MEDS ORDERED: DEXAMETHASONE 0.5 MG TABLET PO SCH (21:00)
[2020-04-19] MEDS ORDERED: VANCOMYCIN INJ 1,000 MG in SODIUM CHLORIDE 0.9% 250 ML IV SCH
[2020-04-19] MEDS: ALBUTEROL/IPRATROPIUM 3 ML NEB RESP TX SCH ×4 (00:56→19:08)
[2020-04-19 01:08] LABS: Osmolality,Calculated 293.1 MOS/KG (273-304); Risk Ratio 3.68; VLDL CHOLESTEROL 17.6 MG/DL
[2020-04-19 01:26] LABS: Basophils % 0.1 % (0.0-0.8); Hematocrit 27.5 VOL% (42.0-52.0); Hemoglobin 8.9 GM/DL (14.0-18.0); Immature Granulocytes % 1.1 %; Immature Granulocytes Absolute 0.08 #; Lymphocytes # 0.7 10*3/uL (1.4-4.0); Lymphocytes % 9.3 % (21.2-54.2); Mean Corpuscular HGB Conc 32.4 GM/DL (32-36); Mean Corpuscular Volume 98.2 FL (87-102); Mean Platelet Volume 10.1 FL (9.6-12.0); Monocytes % 2.7 % (1.7-12.7); Neutrophils % 86.8 % (38.7-73.9); Platelet Count 499 T/CUMM (130-400); Red Cell Distribution Width 16.4 % (9.3-17.3); White Blood Count 7.5 T/CUMM (4-12)
[2020-04-19] MEDS: methylPREDNISolone SOD SUC 40 MG/1 ML VIAL IV SCH ×3 (01:32→17:25)
[2020-04-19] MEDS: MEROPENEM 500 MG in SODIUM CHLORIDE 0.9% 100 ML IV SCH ×3 (04:00→19:59)
[2020-04-19 04:52] LABS: ABG Base Excess -5.9 MMOL/L (-2.5-2.5); ABG HCO3 19.6 MMOL/L (20-26); ABG Oxygen Saturation 97.6 % (95-100); ABG PCO2 28.7 MM HG (35-48); ABG PH 7.404 (7.35-7.45); ABG PO2 98.7 MM HG (80-95); ABG TCO2 16.6 MMOL/L (23-27); Allen Test Positive; Pt O2 Delivery Device BIPAP
[2020-04-19] MEDS: SODIUM CHLORIDE 0.9% 1,000 ML IV SCH ×3 (07:21→23:29)
[2020-04-19] MEDS: DEXAMETHASONE 10 MG/1 ML VIAL IV SCH (08:35)
[2020-04-19] MEDS: LORazepam 2 MG/1 ML VIAL IV PRN ×3 (10:45→18:02)
[2020-04-19] MEDS ORDERED: AZITHROMYCIN INJ 500 MG in SODIUM CHLORIDE 0.9% 250 ML IV SCH (15:00)
[2020-04-19] MEDS: ENOXAPARIN 40 MG/0.4 ML SYRINGE SUBCUT SCH (15:04)
[2020-04-19] MEDS ORDERED: cefTRIAXone 1,000 MG in SYRINGE 1 EACH IV SCH (16:00)
[2020-04-19] MEDS: VANCOMYCIN INJ 1,000 MG in SODIUM CHLORIDE 0.9% 250 ML IV SCH (16:32)
[2020-04-19] MEDS: HYDROmorphone 2 MG/1 ML VIAL IV PRN (17:25)
[2020-04-19] MEDS: FERROUS SULFATE 325 MG TABLET PO SCH (20:25)
[2020-04-19] MEDS: ASCORBIC ACID 500 MG TABLET PO SCH (20:25)
[2020-04-19] MEDS: MULTIVITAMIN (CENTRUM) TABLET PO SCH (20:25)
[2020-04-19] MEDS: CYANOCOBALAMIN 500 MCG TABLET PO SCH (20:25)
[2020-04-19] MEDS: PANTOPRAZOLE 40 MG TABLET PO SCH (20:35)
[2020-04-19] MEDS: CLOPIDOGREL 75 MG TABLET PO SCH (22:26)
[2020-04-20] MEDS: ALBUTEROL/IPRATROPIUM 3 ML NEB RESP TX SCH ×4 (00:54→19:10)
[2020-04-20] MEDS: methylPREDNISolone SOD SUC 40 MG/1 ML VIAL IV SCH ×3 (01:25→18:03)
[2020-04-20] MEDS: LORazepam 2 MG/1 ML VIAL IV PRN ×3 (01:28→19:20)
[2020-04-20] MEDS: HYDROmorphone 2 MG/1 ML VIAL IV PRN ×3 (02:40→22:55)
[2020-04-20] MEDS: MEROPENEM 500 MG in SODIUM CHLORIDE 0.9% 100 ML IV SCH ×3 (03:13→20:56)
[2020-04-20 04:55] LABS: Basophils % 0.1 % (0.0-0.8); Hematocrit 25.5 VOL% (42.0-52.0); Hemoglobin 8.2 GM/DL (14.0-18.0); Immature Granulocytes % 0.4 %; Immature Granulocytes Absolute 0.05 #; Lymphocytes # 0.6 10*3/uL (1.4-4.0); Mean Corpuscular HGB Conc 32.2 GM/DL (32-36); Mean Platelet Volume 10.1 FL (9.6-12.0); Monocytes % 5.4 % (1.7-12.7); Neutrophils % 89.1 % (38.7-73.9); Platelet Count 387 T/CUMM (130-400); Red Blood Count 2.63 MC/CUMM (3.8-5.5); Red Cell Distribution Width 16.7 % (9.3-17.3); White Blood Count 11.2 T/CUMM (4-12)
[2020-04-20 05:23] LABS: Anisocytosis 1+; Band Neutrophils 1 % (0-10); Hypochromasia Slight; Lymphocytes 2 % (20-55); Segmented Neutrophils 95 % (50-85); Total Cells Counted 100
[2020-04-20 05:35] LABS: Alanine Aminotransferase 25 U/L (16-61); Albumin 1.8 G/DL (3.4-5.0); Alkaline Phosphatase 83 U/L (45-117); Aspartate Amino Transferase 52 U/L (0-37); Bilirubin,Total < 0.39 MG/DL (0.2-1.0); Blood Urea Nitrogen 32 MG/DL (7-18); Calcium 8.1 MG/DL (8.5-10.1); Estimated Glom Filtration Rate 67 ML/MIN; Glucose 151 MG/DL (74-106); Osmolality,Calculated 297.7 MOS/KG (273-304); Total Protein 5.9 G/DL (6.4-8.3)
[2020-04-20] MEDS: SODIUM CHLORIDE 0.9% 1,000 ML IV SCH (08:29)
[2020-04-20] MEDS: DEXAMETHASONE 10 MG/1 ML VIAL IV SCH (08:29)
[2020-04-20] MEDS ORDERED: FUROSEMIDE 40 MG/4 ML VIAL IV ONE (08:50)
[2020-04-20] MEDS ORDERED: AZITHROMYCIN INJ 250 MG in SODIUM CHLORIDE 0.9% 250 ML IV SCH (09:00)
[2020-04-20] MEDS ORDERED: AZITHROMYCIN 250 MG TABLET PO SCH (09:00)
[2020-04-20] MEDS: VANCOMYCIN INJ 1,000 MG in SODIUM CHLORIDE 0.9% 250 ML IV SCH (11:40)
[2020-04-20] MEDS: ENOXAPARIN 40 MG/0.4 ML SYRINGE SUBCUT SCH (15:11)
[2020-04-20 15:52] VITALS: BP 122/67
[2020-04-20] MEDS ORDERED: LORazepam 2 MG/1 ML VIAL ONE ×2 (19:11→23:19)
[2020-04-20] MEDS: MULTIVITAMIN (CENTRUM) TABLET PO SCH (21:24)
[2020-04-20] MEDS: CLOPIDOGREL 75 MG TABLET PO SCH (21:25)
[2020-04-20] MEDS: FERROUS SULFATE 325 MG TABLET PO SCH (21:25)
[2020-04-20] MEDS: CYANOCOBALAMIN 500 MCG TABLET PO SCH (21:25)
[2020-04-20] MEDS: PANTOPRAZOLE 40 MG TABLET PO SCH (21:25)
[2020-04-20] MEDS: ASCORBIC ACID 500 MG TABLET PO SCH (21:26)
[2020-04-20] MEDS ORDERED: LORazepam 2 MG/1 ML VIAL IV PRN (23:14)
[2020-04-21] MEDS ORDERED: LORazepam 2 MG/1 ML VIAL ONE (03:11)
[2020-04-21] MEDS: LORazepam 2 MG/1 ML VIAL IV PRN ×4 (03:15→20:13)
[2020-04-21] MEDS: HYDROmorphone 2 MG/1 ML VIAL IV PRN (03:59)
[2020-04-21] MEDS: MORPHINE 4 MG/1 ML VIAL IV PRN ×6 (09:30→20:12)
== END 2020-04-21 20:55 | disposition expired | DRG 871 ==
LOC: EDBD → EDUNIT# → N.ED 10:52 → N.EDINP 14:07 → SUATTDRO 14:07 → N.ICU 15:23 → N.4E 04-20 12:18
PROVIDERS: ADMIT Phlebology; ATTEND Internal Medicine